=== PATIENT | female | born 1995 | race Caucasian/White ===

== ENCOUNTER 2016-12-31 10:21 | Emergency (ER) | payer OTHER ==
[2016-12-31 10:57] LABS: URINE BILIRUBIN NEGATIVE (NEGATIVE); URINE BLOOD NEGATIVE (NEGATIVE); URINE GLUCOSE (UA) NEGATIVE (NEGATIVE); URINE LEUKOCYTE ESTERASE NEGATIVE (NEGATIVE); URINE NITRITE NEGATIVE (NEGATIVE); URINE PROTEIN NEGATIVE (NEGATIVE); URINE UROBILINOGEN NORMAL (0-1 mg/dl)
[2016-12-31 10:58] LABS: URINE APPEARANCE CLEAR; URINE COLOR YELLOW
[2016-12-31 11:00] LABS: HCG,QUALITATIVE URINE NEGATIVE
[2016-12-31] MEDS ORDERED: ONDANSETRON 4 MG ODT TAB ONE (13:29)
[2017-01-01 15:24] LABS: CHLAMYDIA BD Negative (Negative); N.GONORRHOEAE BD Negative (Negative); SOURCE Urine (())
== END 2016-12-31 13:36 | disposition home or self-care (01) ==
LOC: ED 10:21
DX: R10.2 Pelvic and perineal pain (principal); M54.5 Low back pain; G89.29 Other chronic pain; N80.9 Endometriosis, unspecified
CPT/HCPCS: 87491; 87591; 81025; 81003; 99283 ×2; A9270